=== PATIENT | female | born 1960 | race Caucasian/White ===

== ENCOUNTER 2017-03-11 02:04 | Emergency (ER) | payer OTHER ==
[~2017-03-11] VITALS: Ht 167.6 cm; Wt 67.5 kg
[2017-03-11 02:09] VITALS: Ht 167.6 cm; Wt 67.5 kg
[2017-03-11] MEDS ORDERED: DIPHTH/TET/ACEL PERTUSS (ADULT) 0.5 ML VIAL IM* ONE (03:30)
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
[2017-03-11] MEDS ORDERED: CEPH-443 PO (05:05)
[2017-03-11] MEDS ORDERED: ACET500C5 PO (05:05)
[2017-03-11 05:56] VITALS: BP 147/76; PULSE 55; RESP 16
== END 2017-03-11 05:57 | disposition home or self-care (01) ==
LOC: FTE 02:04
DX: S01.81XA Laceration without foreign body of other part of head, initial encounter (principal); S09.90XA Unspecified injury of head, initial encounter; W06.XXXA Fall from bed, initial encounter; Y92.9 Unspecified place or not applicable
CPT/HCPCS: 70450; 90471; 90715